=== PATIENT | female | born 1950 | race Caucasian/White ===

== ENCOUNTER 2017-04-18 08:55 | Emergency (ER) | payer MEDICARE ==
[~2017-04-18] VITALS: Ht 167.6 cm; Wt 136.1 kg
[2017-04-18 09:05] VITALS: BP 168/72
--- NOTE | 2017-04-18 09:15 | PHYS DOC ---
Adult General Chief Complaint Chief Complaint: ANKLE PROBLEM HPI HPI Patient is a 67 year old female presents to the ED complaining of ankle injury x 1 hour. States she was walking down the stairs and twisted her ankle. Describes the pain as sharp. Rates the pain as 7/10. Associated symptoms include mild swelling. Patient able to walk after accident. Denies head/neck injury, LOC, vision changes, n/v, dizziness, weakness, symptoms prior to fall, chest pain or shortness of breath. Review of Systems Review of Systems Constitutional: Denies fever or chills [] Eyes: Denies change in visual acuity, redness, or eye pain [] HENT: Denies nasal congestion or sore throat [] Respiratory: Denies cough or shortness of breath [] Cardiovascular: No additional information not addressed in HPI [] GI: Denies abdominal pain, nausea, vomiting, bloody stools or diarrhea [] : Denies dysuria or hematuria [] Musculoskeletal: Complains of right ankle pain. Denies back pain. [] Integument: Denies rash or skin lesions [] Neurologic: Denies headache, focal weakness or sensory changes [] Endocrine: Denies polyuria or polydipsia [] All other systems were reviewed and found to be within normal limits, except as documented in this note. Allergies Allergies Allergies Coded Allergies Type Severity Reaction Last Updated Verified No Known Drug Allergies 04/18/17 No Physical Exam Physical Exam Constitutional: Well developed, well nourished, no acute distress, non-toxic appearance. [] Eyes: PERRLA, EOMI, conjunctiva normal, no discharge. [] Neck: Normal range of motion, no tenderness, supple, no stridor. [] Cardiovascular:Heart rate regular rhythm, no murmur [] Lungs & Thorax: Bilateral breath sounds clear to auscultation [] Skin: Warm, dry, no erythema, no rash. [] Back: No tenderness, no CVA tenderness. [] Extremities: MILD RIGHT ANKLE TENDERNESS/SWELLING. no cyanosis, no clubbing, ROM intact, no edema. [] Neurologic: Alert and oriented X 3, normal motor function, normal sensory function, no focal deficits noted. [] Psychologic: Affect normal, judgement normal, mood normal. [] Current Patient Data Vital Signs Vital Signs Date Time Temp Pulse Resp B/P (MAP) Pulse Ox O2 Delivery O2 Flow Rate FiO2 11/23/17 09:05 97.9 76 18 95 Room Air 97.9 EKG EKG [] Radiology/Procedures Radiology/Procedures PROCEDURE: ANKLE RIGHT 3V ANKLE RIGHT 3V History:INJURY, fall down steps, pain Comparison: None Findings:3 views of the right ankle are submitted. There are dorsal and plantar calcaneal enthesophytes. There is soft tissue swelling greater laterally. Only seen on one image, there is suggestion of a subtle nondisplaced fracture with transverse orientation of the lateral malleolus. Impression: 1.There is suspected nondisplaced lateral malleolar fracture. There is soft tissue swelling. [] Course & Med Decision Making Course & Med Decision Making Pertinent Labs and Imaging studies reviewed. (See chart for details) []Discussed imaging findings with patient. Splint placed. Neurovascular intact post placement. Patient has a walker. Discussed remaining non-weightbearing. Discussed follow-up with orthopedics in 1-2 days. Provided contact information/ education. Discussed reasons to return to the ED. Patient understands and agrees with plan. Dragon Disclaimer Dragon Disclaimer This electronic medical record was generated, in whole or in part, using a voice recognition dictation system. Departure Departure Impression: Primary Impression: Ankle fracture Disposition: 01 HOME, SELF-CARE Condition: STABLE Referrals: CHAVEZ REGALADO MD Patient Instructions: Ankle Fracture Scripts Tramadol Hcl (TRAMADOL HCL) 50 Mg Tablet 1 TAB PO PRN Q6HRS, #12 TAB Prov: THEO RAPP 04/18/17 THEO RAPP Apr 18, 2017 09:15
--- NOTE | 2017-04-18 10:07 | RAD ---
ANKLE RIGHT 3V History:INJURY, fall down steps, pain Comparison: None Findings:3 views of the right ankle are submitted. There are dorsal and plantar calcaneal enthesophytes. There is soft tissue swelling greater laterally. Only seen on one image, there is suggestion of a subtle nondisplaced fracture with transverse orientation of the lateral malleolus. Impression: 1.There is suspected nondisplaced lateral malleolar fracture. There is soft tissue swelling.
[2017-04-18] MEDS ORDERED: TRAM50TA PO (10:11)
== END 2017-04-18 10:39 | disposition home or self-care (01) ==
LOC: ER 08:55
DX: S82.64XA Nondisplaced fracture of lateral malleolus of right fibula, initial encounter for closed fracture (principal); X58.XXXA Exposure to other specified factors, initial encounter; Y93.01 Activity, walking, marching and hiking; Y92.89 Other specified places as the place of occurrence of the external cause; Y99.8 Other external cause status
CPT/HCPCS: 29515; 73610; 99284-25